=== PATIENT | male | born 1975 | race Two or more races ===

== ENCOUNTER 2019-12-11 21:02 | Emergency (ER) | payer MEDICAID ==
[~2019-12-11] VITALS: Ht 182.9 cm; Wt 113.4 kg
[2019-12-11] MEDS ORDERED: cefTRIAXone W LIDOCAINE 1 GM IM IM ONE (22:00)
[2019-12-11 22:06] LABS: Blood Alcohol < 3.0 mg/dL (0-5)
[2019-12-11 22:24] VITALS: BP 157/102
[2019-12-11] MEDS ORDERED: LIDOCAINE 2% (LOCAL ANESTH.) PF 5ml SDV ONE (22:35)
[2019-12-11] MEDS ORDERED: cefTRIAXone SOD 1,000 MG VL ONE (22:35)
[2019-12-11 23:15] LABS: Albumin 3.7 g/dL (3.4-5.0); Anion Gap 6 (5-15); Calcium 8.8 mg/dL (8.5-10.1); Carbon Dioxide 29 mmol/L (21-32); Chloride 106 mmol/L (98-107); Glucose 88 mg/dL (74-106); Potassium 3.9 mmol/L (3.5-5.1); Sodium 141 mmol/L (136-145)
[2019-12-11 23:17] LABS: Blood Urea Nitrogen 12 mg/dL (7-18); GFR African American 117 mL/min; GFR Non-African American 96 mL/min
[2019-12-11] MEDS ORDERED: TETANUS-DIPTH-ACEL PERTUSSIS 0.5ML SYR Tdap IM ONE (23:30)
[2019-12-11] MEDS ORDERED: BACITRACIN TOP OINT 1 UD PKG TOP ONE (23:30)
[2019-12-11 23:32] LABS: Alanine Aminotransferase 25 U/L (16-61); Alkaline Phosphatase 83 U/L (45-117); Aspartate Aminotransferase 23 U/L (15-37); Bilirubin, Total 0.3 mg/dL (0.2-1.0); Total Protein 7.6 g/dL (6.4-8.2)
[2019-12-11 23:45] LABS: Basophils # (auto) 0 10 ^3/uL (0-0.2); Basophils % (auto) 0.1 % (0.0-2.0); Eosinophils # (auto) 0.1 10 ^3/uL (0-0.8); Hematocrit 44.6 % (41.0-53.0); Hemoglobin 14.7 g/dL (13.5-17.5); Lymphocytes # (auto) 1.8 10 ^3/uL (0.4-5.4); Lymphocytes % (auto) 15.1 % (10.0-50.0); Mean Corpuscular Hemoglobin 30.6 pg (28.0-32.0); Mean Corpuscular Hgb Conc. 33.1 g/dL (32.0-36.0); Mean Corpuscular Volume 92.5 fL (80.0-100.0); Monocytes # (auto) 0.8 10 ^3/uL (0-1.3); Monocytes % (auto) 6.5 % (0.0-12.0); Neutrophils # (auto) 9.2 10 ^3/uL (1.6-8.6); Neutrophils % (auto) 77.3 % (37.0-80.0); Nucleated Red Blood Cells % 0.1 %; Platelet Count (auto) 190 10^3/uL (140-450); Red Blood Cells 4.82 10^6/uL (4.5-5.90); White Blood Cell 11.9 10^3/uL (4.4-10.8)
[2019-12-12] MEDS ORDERED: AMOXICILLIN/CLAVUL 875 MG TAB PO ONE
== END 2019-12-12 00:06 ==
LOC: EDBD 21:02 → ER 21:06
DX: S41.131A Puncture wound without foreign body of right upper arm, initial encounter (principal); S41.031A Puncture wound without foreign body of right shoulder, initial encounter; I10 Essential (primary) hypertension; F15.10 Other stimulant abuse, uncomplicated; F11.10 Opioid abuse, uncomplicated; W54.0XXA Bitten by dog, initial encounter; Y93.89 Activity, other specified; Y92.89 Other specified places as the place of occurrence of the external cause; Y99.8 Other external cause status
CPT/HCPCS: 36415; 71045; 73030; 80053; 80320; 83880; 84484; 85025; 90471; 90715; 93005; 96372; 99285; J0696; J2001; 12002